=== PATIENT | male | born 1995 | race African-American/Black ===

== ENCOUNTER 2019-10-14 17:45 | Emergency (ER) | payer SELFPAY ==
[~2019-10-14] VITALS: Ht 177.8 cm; Wt 68.0 kg
[2019-10-14 18:04] VITALS: BP 127/78
--- NOTE | 2019-10-14 18:49 | Diagnostic Imaging Report ---
EXAM: CT Head Without Intravenous Contrast CLINICAL HISTORY: AMS TECHNIQUE: Axial computed tomography images of the head/brain without intravenous contrast. CTDI is 53.4 mGy and DLP is 992.1 mGy-cm. One or more of the following dose reduction techniques were used: automated exposure control, adjustment of the mA and/or kV according to patient size, use of iterative reconstruction technique. COMPARISON: None FINDINGS: Brain: Unremarkable. No hemorrhage. No significant white matter disease. No edema. Ventricles: Unremarkable. No ventriculomegaly. Bones/joints: Unremarkable. No acute fracture. Soft tissues: Unremarkable. Sinuses: Unremarkable as visualized. No acute sinusitis. Mastoid air cells: Unremarkable as visualized. No mastoid effusion. IMPRESSION: No acute intracranial abnormality.
--- NOTE | 2019-10-14 18:50 | Diagnostic Imaging Report ---
EXAM: XR Chest, 1 View CLINICAL HISTORY: CP TECHNIQUE: Frontal view of the chest. COMPARISON: None. FINDINGS: Lungs: Unremarkable. No consolidation. Pleural space: Unremarkable. No pneumothorax. Heart: Unremarkable. No cardiomegaly. Mediastinum: Unremarkable. Bones/joints: Unremarkable. IMPRESSION: No acute cardiopulmonary disease.
[2019-10-14 18:51] LABS: ANION GAP 12 mmol/L (5-15); BLOOD UREA NITROGEN 6 mg/dL (7-18); CALCIUM 9.5 MG/DL (8.5-10.1); CARBON DIOXIDE 25 MMOL/L (21-32); CHLORIDE 103 MMOL/L (98-107); CREATININE 1.4 MG/DL (0.55-1.30); SODIUM 140 MMOL/L (136-145)
[2019-10-14 18:57] LABS: APPEARANCE,URINE CLEAR; BILIRUBIN, URINE NEGATIVE (NEGATIVE); COLOR,URINE PALE YELLOW; GLUCOSE, URINE (UA) NEGATIVE (NEGATIVE); KETONES,URINE NEGATIVE (NEGATIVE); LEUKOCYTE ESTERASE ,URINE NEGATIVE (NEGATIVE); NITRITE,URINE NEGATIVE (NEGATIVE); PH,URINE 9 (4.5-8.0); PROTEIN,URINE NEGATIVE (NEGATIVE); UROBILINOGEN,URINE NORMAL MG/DL (0.0-1.0)
[2019-10-14 19:05] LABS: ALANINE AMINOTRANSFERASE 21 U/L (12-78); ALBUMIN 4.7 G/DL (3.4-5.0); ALBUMIN/GLOBULIN RATIO 1.4 (1.0-2.7); ALKALINE PHOSPHATASE 76 U/L (46-116); ASPARTATE AMINO TRANSFERASE 37 U/L (15-37); BILIRUBIN,TOTAL 0.9 MG/DL (0.2-1.0); CKMB 2.4 NG/ML (0.0-3.6); CREATINE KINASE 602 U/L (26-308)
[2019-10-14 19:25] LABS: BASOPHILS % (AUTO) 1.1 % (0.0-2.0); EOSINOPHILS % (AUTO) 0.4 % (0.0-3.0); HEMATOCRIT 46.3 % (42.0-52.0); HEMOGLOBIN 14.4 G/DL (14.2-18.0); LYMPHOCYTES % (AUTO) 16.2 % (20.0-45.0); MEAN CORPUSCULAR VOLUME 86 FL (80-99); NEUTROPHILS % (AUTO) 73.3 % (45.0-75.0); PLATELET COUNT 183 K/UL (150-450); RED BLOOD COUNT 5.38 M/UL (4.70-6.10); RED CELL DISTRIBUTION WIDTH 11.7 % (11.6-14.8); WHITE BLOOD COUNT 7.4 K/UL (4.8-10.8)
--- NOTE | 2019-10-14 19:34 | Emergency Room Report ---
History of Present Illness General Chief Complaint: Behavioral Complaint Source: EMS (Yoav Mchugh DO) Present Illness HPI Patient presents with paramedics for reports of change in mental status decreased mentation and what was reported as possible shaking episode Patient himself has not been verbal and cannot provide any input This does limit the history of present illness patient was found outside of a store sitting and doing yoga This is what was reported by paramedics At some point the patient Laid on the ground and was noted to be shaking No other trauma at the scene was reported Again history of present illness is significantly limited There has been no other bystanders or contact (Yoav Mchugh DO) Allergies: Coded Allergies: No Known Allergies (Unverified , 10/15/19) COVID-19 Screening Contact w/high risk pt: No Recent Travel to affected area: No Experienced COVID-19 symptoms?: No COVID-19 Testing performed FISH PROTECTOR: No (Yoav Mchugh DO) Patient History Limited by: medical condition Past Surgical History: unable to obtain Pertinent Family History: unable to obtain Reviewed Nursing Documentation: PMH: Agreed; PSxH: Agreed (Yoav Mchugh DO) Nursing Documentation-PMH Past Medical History: Deferred (Yoav Mchugh DO) Review of Systems All Other Systems: limited - Other than the ones mentioned in the history of present illness all others are reviewed however they do stay limited due to the patient's mental status (Yoav Mchugh DO) Physical Exam Vital Signs Date Time Temp Pulse Resp B/P (MAP) Pulse Ox O2 Delivery O2 Flow Rate FiO2 10/14/19 17:46 97.9 100 16 168/86 (113) 98 Room Air Sp02 EP Interpretation: reviewed, normal General Appearance: no apparent distress Head: normocephalic, atraumatic Eyes: bilateral eye PERRL ENT: normal pharynx, no angioedema Neck: supple Respiratory: lungs clear, no respiratory distress, no retraction, no accessory muscle use Cardiovascular #1: regular rate, rhythm Gastrointestinal: non tender, soft, no mass Musculoskeletal: other - Patient does not follow commands he does grimace and withdraw from physical stimuli Neurologic: other - Patient withdraws away from physical stimuli Skin: no rash Lymphatic: no adenopathy (Yoav Mchugh DO) Procedures Critical Care Time Critical Care Time 40 minutes for multiple re-evaluations multiple neurological evaluations concerning for acute deterioration and possible not including any procedural time (Yoav Mchugh DO) Medical Decision Making Diagnostic Impression: Primary Impression: Behavioral change Additional Impression: Tetrahydrocannabinol (THC) dependence ER Course Multiple differentials including but not limited to neurological, neurosurgical , infectious metabolic pathology entertained, Upon arrival the patient appeared to be having small tremulous type movement of both upper hands including the fingers and the eyelid Upon lifting the patient's hand upward and dropping it down towards his face it does angle away from the face and dropped onto his side Patient grimaces with physical stimuli Still remains nonverbal with us and extensive work-up is initiated CT head does not show any acute process patient's total CK was mildly elevated and marijuana is positive Labs Test 10/14/19 17:56 10/14/19 18:54 Urine Color Pale yellow Urine Appearance Clear Urine pH 9 (4.5-8.0) Urine Specific [place] 1.015 (1.005-1.035) Urine Protein Negative (NEGATIVE) Urine Glucose (UA) Negative (NEGATIVE) Urine Ketones Negative (NEGATIVE) Urine Blood Negative (NEGATIVE) Urine Nitrite Negative (NEGATIVE) Urine Bilirubin Negative (NEGATIVE) Urine Urobilinogen Normal MG/DL (0.0-1.0) Urine Leukocyte Esterase Negative (NEGATIVE) Sodium Level 140 MMOL/L (136-145) Potassium Level 4.0 MMOL/L (3.5-5.1) Chloride Level 103 MMOL/L (98-107) Carbon Dioxide Level 25 MMOL/L (21-32) Anion Gap 12 mmol/L (5-15) Blood Urea Nitrogen 6 mg/dL (7-18) Creatinine 1.4 MG/DL (0.55-1.30) Estimat Glomerular Filtration Rate > 60 mL/min (>60) Glucose Level 100 MG/DL (74-106) Calcium Level 9.5 MG/DL (8.5-10.1) Total Bilirubin 0.9 MG/DL (0.2-1.0) Aspartate Amino Transf (AST/SGOT) 37 U/L (15-37) Alanine Aminotransferase (ALT/SGPT) 21 U/L (12-78) Alkaline Phosphatase 76 U/L (46-116) Total Creatine Kinase 602 U/L (26-308) Creatine Kinase MB 2.4 NG/ML (0.0-3.6) Creatine Kinase MB Relative Index 0.3 Total Protein 8.1 G/DL (6.4-8.2) Albumin 4.7 G/DL (3.4-5.0) Globulin 3.4 g/dL Albumin/Globulin Ratio 1.4 (1.0-2.7) Lipase 50 U/L (73-393) Urine Opiates Screen Negative (NEGATIVE) Urine Barbiturates Screen Negative (NEGATIVE) Phencyclidine (PCP) Screen Negative (NEGATIVE) Urine Amphetamines Screen Negative (NEGATIVE) Urine Benzodiazepines Screen Negative (NEGATIVE) Urine Cocaine Screen Negative (NEGATIVE) Urine Marijuana (THC) Screen Positive (NEGATIVE) Serum Alcohol < 3 mg/dL White Blood Count 7.4 K/UL (4.8-10.8) Red Blood Count 5.38 M/UL (4.70-6.10) Hemoglobin 14.4 G/DL (14.2-18.0) Hematocrit 46.3 % (42.0-52.0) Mean Corpuscular Volume 86 FL (80-99) Mean Corpuscular Hemoglobin 26.8 PG (27.0-31.0) Mean Corpuscular Hemoglobin Concent 31.2 G/DL (32.0-36.0) Red Cell Distribution Width 11.7 % (11.6-14.8) Platelet Count 183 K/UL (150-450) Mean Platelet Volume 7.6 FL (6.5-10.1) Neutrophils (%) (Auto) 73.3 % (45.0-75.0) Lymphocytes (%) (Auto) 16.2 % (20.0-45.0) Monocytes (%) (Auto) 9.0 % (1.0-10.0) Eosinophils (%) (Auto) 0.4 % (0.0-3.0) Basophils (%) (Auto) 1.1 % (0.0-2.0) (Yoav Mchugh DO) ER Course Patient signed out by Dr. Mchugh at 2200. Patient was brought in by EMS for altered mental status. Patient became agitated but has not spoken to anybody in the emergency room. He was sedated prior to my arrival. I have attempted to speak with the patient but he looks past to me and refuses to communicate. Labs significant for positive THC. Patient will be signed out to at 0600. (Judy Aceves M.D.) ER Course Patient signed out to me from previous provider. Briefly this 28-year-old male came in for altered mental status. He he had been nonverbal in the ED up to this point. Labs are returned within normal limits aside resulting positive for THC. Patient is now awake and alert. He asked for a vegetarian meal, ate the entire breakfast and requesting to be discharged. He does not provide any information of last night's events. He does not want to talk about it. He has provided his name, Prisca Gurrola. Denied any other complaints at this time. Will refer to outpatient clinics and mental health providers. Advised to return to the emergency department with any changes in his health. (Angel Underwood MD) EKG Diagnostic Results Rate: normal Rhythm: NSR ST Segments: no acute changes (Yoav Mchugh DO) Rhythm Strip Diag. Results EP Interpretation: yes Rate: 88 Rhythm: NSR, no PVC's, no ectopy (Yoav Mchugh DO) Chest X-Ray Diagnostic Results Chest X-Ray Diagnostic Results : Chest X-Ray Ordered: Yes # of Views/Limited/Complete: 1 View Indication: Chest Pain EP Interpretation: Yes Interpretation: no consolidation, no effusion, no pneumothorax Impression: No acute disease Electronically Signed by: Yoav Mchugh DO (Yoav Mchugh DO) CT/MRI/US Diagnostic Results CT/MRI/US Diagnostic Results : Impression CT head no acute disease (Yoav Mchugh DO) Last Vital Signs Date Time Temp Pulse Resp B/P (MAP) Pulse Ox O2 Delivery O2 Flow Rate FiO2 10/14/19 18:04 97.9 85 16 127/78 98 Room Air Status: improved (Yoav Mchugh DO) Disposition: HOME, SELF-CARE Condition: Stable Referrals: NOT CHOSEN IPA/,REFERRING (PCP) Yoav Mchugh DO October 14, 2019 19:34 Judy Aceves M.D. October 15, 2019 05:33 Angel Underwood MD October 15, 2019 10:46
[2019-10-14 19:53] VITALS: BP 129/58
[2019-10-14 21:34] VITALS: BP 112/48
[2019-10-14] MEDS ORDERED: LORazepam Inj 2mg/ml 1ml IV ONE (22:30)
[2019-10-14] MEDS ORDERED: Haloperidol 5mg/ml Inj IM ONE (22:30)
[2019-10-14 23:30] VITALS: BP 81/42
[2019-10-15] VITALS (9 sets, daily range): BP systolic 90–113; BP diastolic 43–69
== END 2019-10-15 11:30 | disposition home or self-care (01) ==
LOC: EDBD 17:45 → EMR 18:02 → EDBD 18:02 → EMR 10-15 11:30
DX: F68.8 Other specified disorders of adult personality and behavior (principal); F12.20 Cannabis dependence, uncomplicated
CPT/HCPCS: 36415; 70450; 71045; 80053; 80307; 81003; 82550; 82553; 82962; 83690; 85025; 93005; 96361; 96372; 96374; 99291; G0480; J1630; J7030